=== PATIENT | male | born 1960 | race Caucasian/White ===

== ENCOUNTER → 2023-07-02 12:41 | Outpatient (REF) | payer BC, SELFPAY | LOC: RCS 12:41 | PROVIDERS: ATTENDING PHYSICIAN Nurse Practitioner; FAMILY PHYSICIAN Family Medicine | DX: I21.3 ST elevation (STEMI) myocardial infarction of unspecified site (principal); I25.10 Atherosclerotic heart disease of native coronary artery without angina pectoris | CPT/HCPCS: 93308; 93321; 93325 ==